=== PATIENT | male | born 1980 ===

== ENCOUNTER 2023-12-18 18:28 | Outpatient (REF) | payer SELFPAY ==
[2023-12-18 20:04] LABS: HCT 50.5 % (40.0-50.0); MCH 28.6 pg (27.0-33.0); MCHC 33.7 % (32.0-36.0); MCV 85 fL (80-95); Platelet Count 343 10^3/uL (130-400); RBC 5.95 10^6/uL (4.36-5.78); RDW 13.6 % (11.8-14.1); RDW-SD 42.1 fL; WBC 11.21 10^3/uL (4.4-10.8)
[2023-12-18 20:24] LABS: ALT 25 U/L (16-63); AST 18 U/L (15-37); Alkaline Phosphatase 132 U/L (46-116); Anion Gap 10.9 mmol/L (3-11); BUN 8 mg/dL (7-18); Bilirubin, Total 0.3 mg/dL (0.2-1.0); CO2 22.1 mmol/L (21.0-32.0); CREATININE 1.2 mg/dL (0.70-1.30); Calcium 9.2 mg/dL (8.5-10.1); Calculated LDL 174 mg/dL (<100); Chloride 109 mmol/L (98-107); Cholesterol 245 mg/dL (<200); Glucose 82 mg/dL (74-106); HDL Cholesterol 38 mg/dL (40-60); Potassium 4.2 mmol/L (3.5-5.1); Sodium 142 mmol/L (136-145); Total Protein 7.7 g/dL (6.4-8.2); Triglyceride 168 mg/dL (<150)
[2023-12-18 21:02] LABS: Hemoglobin A1C 5.3 % (<5.7)
== END 2023-12-18 18:29 | disposition home or self-care (01) ==
LOC: NCHCN 18:28
PROVIDERS: Visit Provider Nurse Practitioner Family
DX: Z00.00 Encounter for general adult medical examination without abnormal findings (principal); Z13.220 Encounter for screening for lipoid disorders
CPT/HCPCS: 80053; 80061; 85027; 83036

== ENCOUNTER 2024-03-12 17:01 | Outpatient (REF) | payer BC, SELFPAY ==
[2024-03-12 19:22] LABS: ALT 27 U/L (16-63); AST 16 U/L (15-37); Alkaline Phosphatase 122 U/L (46-116); Anion Gap 8.8 mmol/L (3-11); BUN 11 mg/dL (7-18); Bilirubin, Total 0.4 mg/dL (0.2-1.0); CO2 21.2 mmol/L (21.0-32.0); Calcium 8.6 mg/dL (8.5-10.1); Calculated LDL 157 mg/dL (<100); Chloride 107 mmol/L (98-107); Cholesterol 219 mg/dL (<200); Estimated GFR 94.59 (mL/min/1.73m2); Glucose 90 mg/dL (74-106); HDL Cholesterol 39 mg/dL (40-60); Potassium 3.5 mmol/L (3.5-5.1); Sodium 137 mmol/L (136-145); Total Protein 7.1 g/dL (6.4-8.2); Triglyceride 115 mg/dL (<150)
== END 2024-03-12 17:02 | disposition home or self-care (01) ==
LOC: NCHCN 17:01
PROVIDERS: Visit Provider Nurse Practitioner Family
DX: E78.5 Hyperlipidemia, unspecified (principal)
CPT/HCPCS: 80053; 80061

== ENCOUNTER 2025-01-07 08:44 | Outpatient (REF) | payer BC, SELFPAY ==
[2025-01-07 19:26] LABS: HCT 52.8 % (40.0-50.0); HGB 17.2 g/dL (13.5-17.5); MCH 28.5 pg (27.0-33.0); MCHC 32.6 % (32.0-36.0); MCV 87 fL (80-95); Platelet Count 307 10^3/uL (130-400); RBC 6.04 10^6/uL (4.36-5.78); RDW 13.6 % (11.8-14.1); RDW-SD 43.6 fL; WBC 8.04 10^3/uL (4.4-10.8)
[2025-01-07 19:43] LABS: ALT 23 U/L (16-63); AST 17 U/L (15-37); Albumin 3.8 g/dL (3.4-5.0); Alkaline Phosphatase 125 U/L (46-116); Anion Gap 9.3 mmol/L (3-11); BUN 12 mg/dL (7-18); Bilirubin, Total 0.4 mg/dL (0.2-1.0); CO2 22.7 mmol/L (21.0-32.0); CREATININE 1.3 mg/dL (0.70-1.30); Calcium 9.1 mg/dL (8.5-10.1); Calculated LDL 176 mg/dL (<100); Chloride 111 mmol/L (98-107); Cholesterol 241 mg/dL (<200); Estimated GFR 68.61 (mL/min/1.73m2); Glucose 113 mg/dL (74-106); HDL Cholesterol 44 mg/dL (>or=40); Sodium 143 mmol/L (136-145); Total Protein 7.1 g/dL (6.4-8.2); Triglyceride 106 mg/dL (<150)
== END 2025-01-07 08:45 | disposition home or self-care (01) ==
LOC: NCHCN 08:44
PROVIDERS: Visit Provider Nurse Practitioner Family
DX: E78.5 Hyperlipidemia, unspecified (principal); H35.52 Pigmentary retinal dystrophy
CPT/HCPCS: 80053; 80061; 85027

== ENCOUNTER 2025-01-18 16:05 | Outpatient (REF) | payer BC, SELFPAY ==
[2025-01-18 19:31] LABS: Bilirubin Negative (Negative); Blood Negative (Negative); Clarity Clear (Clear); Glucose Negative (Negative); Ketones Negative (Negative); Leukocyte Esterase Negative (Negative); Nitrite Negative (Negative); Urobilinogen 0.2 mg/dL (Up to 0.2); pH 7.5 (5-8)
[2025-01-20 21:27] LABS: Erythropoietin 8.6 mIU/mL (2.6 - 18.5)
== END 2025-01-18 16:06 | disposition home or self-care (01) ==
LOC: NCHCN 16:05
PROVIDERS: Visit Provider Nurse Practitioner Family
DX: D75.1 Secondary polycythemia (principal)
CPT/HCPCS: 82668; 81003